=== PATIENT | male | born 1955 | race Caucasian/White ===

== ENCOUNTER 2024-06-18 10:20 | Day surgery (SDC) | payer MEDICARE ==
[~2024-06-18] VITALS: Ht 180.3 cm; Wt 101.1 kg
[2024-06-18] VITALS (14 sets, daily range): BP systolic 103–140; BP diastolic 53–82
[~2024-06-18 10:20] MED LIST: Lactated Ringer's 1,000 ML IV SCH; METF500 PO; VITAMIN B121000 MCG; Vitamin C100 M1; Vitamin D1000 UNI1
--- NOTE | 2024-06-18 10:37 | NUR ---
History, Chart, Medications and Allergies reviewed before start of procedure. Pre-Op teaching done. Pt verbalizes understanding. Patient states colon prep results LIGHT YELLOW. Patient States Post-Procedure ride home has been arranged WITH , JOHNATHAN.
[2024-06-18] MEDS ORDERED: propofoL 40 ML IV ONE (10:39)
--- NOTE | 2024-06-18 11:04 | NUR ---
06/18/24 1104 Haylie Chou CONFIRMED AND REVIEWED H&P, MEDCICATIONS, ALLERGIES, MEDICAL HISTORY, RESPIRATORY HISTORY, VITAL SIGNS, 3-LEAD EKG, CONSENTS, AND PHYSICIAN ORDERS. PATIENT CONFIRMS NPO STATUS AND AGREES WITH SCHEDULED PROCEDURE. MONITOR INTACT WITH CONTINUOUS PULSE OXIMETRY, CAPNOGRAPHY, 3-LEAD EKG, INTERMITTENT BP. SUPPLEMENTAL O2 TO BE TITRATED THROUGHOUT PROCEDURE TO MAINTAIN O2 SATURATION ABOVE 90%. PATIENT DETERMINED TO BE ASA APPROPRIATE FOR PROPOFOL SEDATION PRIOR TO START OF PROCEDURE BY DR. ESPITIA. MONITOR INTACT WITH CONTINUOUS PULSE OXIMETRY, CONTINUOUS END TITAL CO2, AND INTERMITTENT BLOOD PRESSURE.
--- NOTE | 2024-06-18 11:46 | NUR ---
Discharge instructions reviewed with patient. Patient verbalizes understanding. Copy given to patient to take home. Patient States Post-Procedure ride home has been arranged. Discharged via wheelchair to private car for ride home.
== END 2024-06-18 11:47 | disposition home or self-care (01) ==
LOC: ORSCMMR 10:20 → ORD 11:00 → ORSCMMR 11:47
PROVIDERS: Internal Medicine Gastroenterology
PROC: 0DJD8ZZ Inspection of Lower Intestinal Tract, Via Natural or Artificial Opening Endoscopic (ICD-10-PCS; principal; 2024-06-18 11:00)
DX: Z12.11 Encounter for screening for malignant neoplasm of colon (principal); K57.30 Diverticulosis of large intestine without perforation or abscess without bleeding; E11.9 Type 2 diabetes mellitus without complications; Z79.84 Long term (current) use of oral hypoglycemic drugs; Z79.899 Other long term (current) drug therapy
CPT/HCPCS: 82947; J2704; J7120